=== PATIENT | female | born 1965 | race Caucasian/White ===

== ENCOUNTER 2022-11-12 14:17 | Inpatient (IN) | payer SELFPAY ==
[2022-11-12] MEDS ORDERED: Magnesium 2 GM/50 ML BAG (IN WATER) ONE (14:57)
[2022-11-12] MEDS ORDERED: Dexamethasone 10 MG/ML VIAL ONE (14:57)
[2022-11-12] MEDS ORDERED: Ipratropium/Albuterol 3 ML NEB ONE (15:02)
[2022-11-12 15:20] LABS: #Basophils 0.1 10x3/uL (0.0-0.2); #Eosinphils 0.2 10x3/uL (0.0-0.5); #Monocytes 0.8 10x3/uL (0.0-1.1); #Neutrophils 8.9 10x3/uL (1.5-8.4); %Basophils 0.8 % (0.0-2.0); %Eosinophils 1.6 % (0.0-6.0); %Lymphocytes 24.2 % (18.0-47.0); %Monocytes 5.9 % (0.0-10.0); %Neutrophils 66.7 % (40.0-75.0); Hemoglobin 12.8 g/dL (12.0-15.5); Mean Corpuscular HGB CONC 32.7 g/dL (32.0-36.0); Mean Corpuscular Hemoglobin 29.8 pg (27.0-33.0); Mean Corpuscular Volume 91.2 fl (81.6-98.3); Mean Platelet Volume 10.6 fl (7.4-10.4); Platelet Count 438 10x3/uL (150-450); RBC Distribution Width 12.5 % (11.5-14.5); White Blood Cell (WBC) Count 13.3 10x3/uL (3.5-10.5)
[2022-11-12 15:33] LABS: ALT (SGPT) 14 U/L (8-55); AST (SGOT) 13 U/L (5-34); Alkaline Phosphatase 102 U/L (40-110); Anion Gap 15 mmol/L (10-20); BUN (Urea Nitrogen) 20 mg/dL (9.8-20.1); Bilirubin, Total 0.5 mg/dL (0.2-1.2); CK (CPK) 100 U/L (29-168); Calc. Creatinine Clearance 0 mL/min (70-130); Calcium 9.1 mg/dL (7.8-10.44); Carbon Dioxide 22 mmol/L (22-29); Chloride 104 mmol/L (98-107); Estimated GFR 62; Globulin 2.6 g/dL (2.4-3.5); Glucose 156 mg/dL (70-105); Lipase 61 U/L (8-78); Potassium 4.1 mmol/L (3.5-5.1); Protein, Total 6.6 g/dL (6.0-8.3); Sodium 137 mmol/L (136-145)
[2022-11-12] MEDS ORDERED: diphenhydrAMINE 50 MG/ML VIAL ONE (16:13)
[2022-11-12 16:14] LABS: CKMB 0.9 ng/mL (0-6.6)
[2022-11-12] MEDS ORDERED: Aspirin Chewable 81 MG TAB ONE (16:31)
[2022-11-12 17:51] LABS: Bilirubin Neg (Negative); Blood, Urine 25 (Negative); Clarity Clear (Clear); Glucose, Urine (Dipstick) Normal (Negative); Ketone, Urine Negative (Negative); Leukocyte Negative (Negative); Nitrite Negative (Negative); Protein, Urine (Dipstick) Negative (Neg-Trace); Specific Gravity, Urine 1.005 (1.005-1.030); Urobilinogen Normal mg/dL (Less than 2)
[2022-11-12 17:56] LABS: Bacteria/HPF Rare-Few HPF (None Seen); CAUTI Indications for Culture Fever or rigors; RBC/HPF 0-3 HPF (0-3); Squamous Epithelial 0-3 HPF (0-3); WBC/HPF None Seen HPF (0-3)
[2022-11-12 17:57] LABS: Urine Culture Reflex No No
[2022-11-12] MEDS ORDERED: Acetaminophen 650 MG Suppository PR PRN (18:02)
[2022-11-12] MEDS ORDERED: Ondansetron ODT 4 MG TAB PO PRN (18:02)
[2022-11-12] MEDS ORDERED: Ondansetron PF 4 MG/2 ML Vial IVP PRN (18:02)
[2022-11-12 18:39] VITALS: BMI 33.7
[2022-11-12] MEDS ORDERED: Dextrose 5% in Water 1,000 ML IV PRN (18:53)
[2022-11-12] MEDS ORDERED: Glucagon 1 MG/ML KIT IM PRN (18:53)
[2022-11-12] MEDS ORDERED: Dextrose 50% Abboject 50 ML SYRINGE SLOW IVP PRN (18:53)
[2022-11-12] MEDS ORDERED: Ventolin HFA Inhaler 60 PUFF INHALER INH PRN (18:59)
[2022-11-12] MEDS: Atorvastatin Calcium 20 MG TAB PO SCH (20:08)
[2022-11-12] MEDS: Apixaban 5 MG TAB PO SCH (20:08)
[2022-11-12] MEDS: cefTRIAXone\\ROCEPHIN 1 GM in Sodium Chloride 0.9% 100 ML IVPB SCH (20:08)
[2022-11-12] MEDS: Gabapentin 300 MG CAP PO SCH (20:28)
[2022-11-12] MEDS ORDERED: Insulin Regular 300 UNITS/3 ML VIAL ONE (20:28)
[2022-11-12] MEDS: traMADol HCl 50 MG TAB PO PRN (20:29)
[2022-11-12] MEDS ORDERED: Carvedilol 3.125 MG TAB PO SCH (20:30)
[2022-11-12] MEDS: Insulin Regular 300 UNITS/3 ML VIAL SC PRN (20:30)
[2022-11-12] MEDS: Azithromycin 500 MG in Sodium Chloride 0.9% 250 ML 250 ML IVPB SCH (21:23)
[2022-11-12] MEDS: Ipratropium/Albuterol 3 ML NEB NEB SCH (21:26)
[2022-11-12 21:52] LABS: Digoxin 0.47 ng/mL (0.8-2.0)
[2022-11-12] MEDS ORDERED: Benzonatate 100 MG CAP PO SCH (23:45)
[2022-11-12] MEDS: hydrOXYzine 25 MG TAB PO PRN (23:47)
[2022-11-12] MEDS: methylPREDNISolone Sod Succ 40 MG VIAL IVP SCH (23:48)
[2022-11-13 00:03] LABS: Strep pneumo Urine Ag NEGATIVE (NEGATIVE)
[2022-11-13 00:04] LABS: Legionella Urinary Ag Negative (Negative)
[2022-11-13] MEDS: Ipratropium/Albuterol 3 ML NEB NEB SCH ×4 (01:54→20:19)
[2022-11-13] MEDS: Benzonatate 100 MG CAP PO SCH ×3 (03:31→22:32)
[2022-11-13 05:36] LABS: #Monocytes 0.2 10x3/uL (0.0-1.1); #Neutrophils 9.1 10x3/uL (1.5-8.4); %Basophils 0.2 % (0.0-2.0); %Lymphocytes 10.1 % (18.0-47.0); %Monocytes 1.7 % (0.0-10.0); %Neutrophils 86.3 % (40.0-75.0); Hemoglobin 10.8 g/dL (12.0-15.5); Mean Corpuscular Volume 90.8 fl (81.6-98.3); Mean Platelet Volume 10.5 fl (7.4-10.4); Platelet Count 358 10x3/uL (150-450); RBC Distribution Width 12.3 % (11.5-14.5); White Blood Cell (WBC) Count 10.6 10x3/uL (3.5-10.5)
[2022-11-13] MEDS: traMADol HCl 50 MG TAB PO PRN ×2 (05:44→18:12)
[2022-11-13] MEDS: Insulin Regular 300 UNITS/3 ML VIAL SC PRN ×4 (05:47→22:05)
[2022-11-13 05:52] LABS: Anion Gap 15 mmol/L (10-20); BUN (Urea Nitrogen) 20 mg/dL (9.8-20.1); Calc. Creatinine Clearance 89 mL/min (70-130); Calcium 8.5 mg/dL (7.8-10.44); Carbon Dioxide 19 mmol/L (22-29); Chloride 104 mmol/L (98-107); Estimated GFR 63; Glucose 305 mg/dL (70-105); Potassium 3.8 mmol/L (3.5-5.1); Sodium 134 mmol/L (136-145)
[2022-11-13] MEDS: methylPREDNISolone Sod Succ 40 MG VIAL IVP SCH ×3 (06:10→16:57)
[2022-11-13] MEDS ORDERED: INSULN ASP SQ SCH (07:30)
[2022-11-13] MEDS ORDERED: INSULIN ASPART PROT SQ SCH (07:30)
[2022-11-13] MEDS ORDERED: [UNRECOGNIZED DRUG - OTHER] SQ SCH (07:30)
[2022-11-13] MEDS ORDERED: Carvedilol 3.125 MG TAB PO SCH (08:00)
[2022-11-13] MEDS: HumuLIN 70/30 (300 UNITS/3 ML VIAL) SC SCH ×2 (08:47→16:58)
[2022-11-13] MEDS: Gabapentin 300 MG CAP PO SCH ×2 (08:48→22:33)
[2022-11-13] MEDS: Apixaban 5 MG TAB PO SCH ×2 (08:48→22:32)
[2022-11-13] MEDS: Digoxin 0.125 MG TAB PO SCH (08:48)
[2022-11-13] MEDS: Carvedilol 3.125 MG TAB PO SCH ×2 (08:48→16:58)
[2022-11-13] MEDS ORDERED: DULoxetine 20 MG CAP PO SCH (12:00)
[2022-11-13] MEDS ORDERED: Flecainide 50 MG TAB PO SCH (12:00)
[2022-11-13] MEDS ORDERED: Naproxen 500 MG TAB PO SCH (12:15)
[2022-11-13] MEDS: hydrOXYzine 25 MG TAB PO PRN (12:17)
[2022-11-13] MEDS ORDERED: EXENATIDE 5 MCG/0.02 ML SQ SCH (15:00)
[2022-11-13] MEDS: Azithromycin 500 MG in Sodium Chloride 0.9% 250 ML 250 ML IVPB SCH (22:05)
[2022-11-13] MEDS: Acetaminophen 325 MG TAB PO PRN (22:31)
[2022-11-13] MEDS: cefTRIAXone\\ROCEPHIN 1 GM in Sodium Chloride 0.9% 100 ML IVPB SCH (22:31)
[2022-11-13] MEDS: Atorvastatin Calcium 20 MG TAB PO SCH (22:32)
[2022-11-13] MEDS: Flecainide 50 MG TAB PO SCH (22:32)
[2022-11-14] MEDS: methylPREDNISolone Sod Succ 40 MG VIAL IVP SCH ×3 (00:50→21:14)
[2022-11-14] MEDS: Ipratropium/Albuterol 3 ML NEB NEB SCH ×4 (01:43→20:19)
[2022-11-14] MEDS: traMADol HCl 50 MG TAB PO PRN ×3 (05:13→23:40)
[2022-11-14 05:40] LABS: Hemoglobin 9.9 g/dL (12.0-15.5); Mean Corpuscular HGB CONC 32.8 g/dL (32.0-36.0); Mean Corpuscular Hemoglobin 30.7 pg (27.0-33.0); Mean Corpuscular Volume 93.5 fl (81.6-98.3); Mean Platelet Volume 10.7 fl (7.4-10.4); Platelet Count 376 10x3/uL (150-450); RBC Distribution Width 12.9 % (11.5-14.5); Red Blood Cell (RBC) Count 3.23 10x6/uL (3.90-5.03); White Blood Cell (WBC) Count 23.6 10x3/uL (3.5-10.5)
[2022-11-14 05:43] LABS: MDiff Complete? YES
[2022-11-14 05:51] LABS: Anion Gap 14 mmol/L (10-20); BUN (Urea Nitrogen) 26 mg/dL (9.8-20.1); Calc. Creatinine Clearance 95 mL/min (70-130); Calcium 8.7 mg/dL (7.8-10.44); Carbon Dioxide 21 mmol/L (22-29); Chloride 107 mmol/L (98-107); Estimated GFR 68; Glucose 286 mg/dL (70-105); Potassium 4.7 mmol/L (3.5-5.1); Sodium 137 mmol/L (136-145)
[2022-11-14 06:01] LABS: Band 1 % (5-11); Lymphocytes 14 % (21-51); Monocytes 9 % (0-10); Neutrophil 75 % (42-75); Reactive Lymphocytes 1 % (0-10)
[2022-11-14 06:02] LABS: Platelet Adequacy Comment Appears Adequate
[2022-11-14] MEDS: Insulin Regular 300 UNITS/3 ML VIAL SC PRN (06:38)
[2022-11-14] MEDS: Carvedilol 3.125 MG TAB PO SCH ×2 (09:16→17:24)
[2022-11-14] MEDS: DULoxetine 20 MG CAP PO SCH (09:16)
[2022-11-14] MEDS: Benzonatate 100 MG CAP PO SCH ×3 (09:16→21:13)
[2022-11-14] MEDS: Gabapentin 300 MG CAP PO SCH ×2 (09:17→21:12)
[2022-11-14] MEDS: Apixaban 5 MG TAB PO SCH ×2 (09:18→21:12)
[2022-11-14] MEDS: Digoxin 0.125 MG TAB PO SCH (09:21)
[2022-11-14] MEDS: Flecainide 50 MG TAB PO SCH ×2 (09:22→21:12)
[2022-11-14] MEDS: hydrOXYzine 25 MG TAB PO PRN (09:26)
[2022-11-14] MEDS: HumuLIN 70/30 (300 UNITS/3 ML VIAL) SC SCH ×2 (09:27→17:24)
[2022-11-14] MEDS: cefTRIAXone\\ROCEPHIN 1 GM in Sodium Chloride 0.9% 100 ML IVPB SCH (21:12)
[2022-11-14] MEDS: Atorvastatin Calcium 20 MG TAB PO SCH (21:12)
[2022-11-14] MEDS: Azithromycin 500 MG in Sodium Chloride 0.9% 250 ML 250 ML IVPB SCH (21:13)
[2022-11-15] MEDS: Ipratropium/Albuterol 3 ML NEB NEB SCH ×4 (02:36→19:11)
[2022-11-15 05:12] LABS: Anion Gap 11 mmol/L (10-20); BUN (Urea Nitrogen) 26 mg/dL (9.8-20.1); Calc. Creatinine Clearance 94 mL/min (70-130); Calcium 8.5 mg/dL (7.8-10.44); Carbon Dioxide 25 mmol/L (22-29); Chloride 108 mmol/L (98-107); Estimated GFR 67; Glucose 154 mg/dL (70-105); Potassium 4.9 mmol/L (3.5-5.1); Sodium 139 mmol/L (136-145)
[2022-11-15 05:29] LABS: #Basophils 0.1 10x3/uL (0.0-0.2); #Monocytes 0.3 10x3/uL (0.0-1.1); #Neutrophils 12.4 10x3/uL (1.5-8.4); %Basophils 0.3 % (0.0-2.0); %Lymphocytes 11.3 % (18.0-47.0); %Neutrophils 84.4 % (40.0-75.0); Hemoglobin 10.4 g/dL (12.0-15.5); Mean Corpuscular HGB CONC 32.5 g/dL (32.0-36.0); Mean Corpuscular Hemoglobin 29.8 pg (27.0-33.0); Mean Corpuscular Volume 91.7 fl (81.6-98.3); Mean Platelet Volume 10.8 fl (7.4-10.4); Platelet Count 386 10x3/uL (150-450); RBC Distribution Width 13.2 % (11.5-14.5); Red Blood Cell (RBC) Count 3.49 10x6/uL (3.90-5.03); White Blood Cell (WBC) Count 14.7 10x3/uL (3.5-10.5)
[2022-11-15] MEDS ORDERED: Ondansetron ODT 4 MG TAB PO PRN (05:55)
[2022-11-15] MEDS ORDERED: Ondansetron ODT 4 MG TAB PO SCH (06:00)
[2022-11-15] MEDS: traMADol HCl 50 MG TAB PO PRN (06:07)
[2022-11-15] MEDS: Acetaminophen 325 MG TAB PO PRN (06:08)
[2022-11-15] MEDS: methylPREDNISolone Sod Succ 40 MG VIAL IVP SCH ×2 (08:55→21:02)
[2022-11-15] MEDS: HumuLIN 70/30 (300 UNITS/3 ML VIAL) SC SCH ×2 (08:58→16:00)
[2022-11-15] MEDS: DULoxetine 20 MG CAP PO SCH (09:00)
[2022-11-15] MEDS: Apixaban 5 MG TAB PO SCH ×2 (09:01→21:02)
[2022-11-15] MEDS: Gabapentin 300 MG CAP PO SCH ×2 (09:01→21:01)
[2022-11-15] MEDS: Carvedilol 3.125 MG TAB PO SCH ×2 (09:01→16:52)
[2022-11-15] MEDS: Digoxin 0.125 MG TAB PO SCH (09:01)
[2022-11-15] MEDS: Flecainide 50 MG TAB PO SCH ×2 (09:02→21:01)
[2022-11-15] MEDS: Benzonatate 100 MG CAP PO SCH ×3 (09:02→21:01)
[2022-11-15] MEDS: hydrOXYzine 25 MG TAB PO PRN (09:09)
[2022-11-15] MEDS ORDERED: Fioricet 325/50/40 mg Tablet PO SCH (10:00)
[2022-11-15] MEDS: Insulin Regular 300 UNITS/3 ML VIAL SC PRN ×2 (12:20→21:16)
[2022-11-15] MEDS ORDERED: Senokot S 8.6-50 MG TAB PO SCH (15:45)
[2022-11-15] MEDS: Polyethylene Glycol 3350 17 GM Packet PO PRN (15:52)
[2022-11-15] MEDS: cefTRIAXone\\ROCEPHIN 1 GM in Sodium Chloride 0.9% 100 ML IVPB SCH (21:00)
[2022-11-15] MEDS: Atorvastatin Calcium 20 MG TAB PO SCH (21:01)
[2022-11-15] MEDS: Azithromycin 500 MG in Sodium Chloride 0.9% 250 ML 250 ML IVPB SCH (21:02)
[2022-11-15] MEDS: Senokot S 8.6-50 MG TAB PO SCH (21:06)
[2022-11-15] MEDS: Fioricet 325/50/40 mg Tablet PO PRN (22:04)
[2022-11-16] MEDS: Ipratropium/Albuterol 3 ML NEB NEB SCH ×3 (01:13→14:22)
[2022-11-16] MEDS: Fioricet 325/50/40 mg Tablet PO PRN ×2 (03:30→11:58)
[2022-11-16 04:48] LABS: Anion Gap 11 mmol/L (10-20); BUN (Urea Nitrogen) 25 mg/dL (9.8-20.1); Calc. Creatinine Clearance 93 mL/min (70-130); Calcium 8.8 mg/dL (7.8-10.44); Carbon Dioxide 26 mmol/L (22-29); Chloride 104 mmol/L (98-107); Estimated GFR 66; Glucose 203 mg/dL (70-105); Sodium 136 mmol/L (136-145)
[2022-11-16 05:07] LABS: #Basophils 0.1 10x3/uL (0.0-0.2); #Monocytes 0.6 10x3/uL (0.0-1.1); #Neutrophils 13.4 10x3/uL (1.5-8.4); %Basophils 0.4 % (0.0-2.0); %Lymphocytes 11.6 % (18.0-47.0); %Monocytes 3.9 % (0.0-10.0); %Neutrophils 80.8 % (40.0-75.0); Hemoglobin 10.5 g/dL (12.0-15.5); Mean Corpuscular HGB CONC 32.1 g/dL (32.0-36.0); Mean Corpuscular Hemoglobin 29.4 pg (27.0-33.0); Mean Corpuscular Volume 91.6 fl (81.6-98.3); Mean Platelet Volume 10.8 fl (7.4-10.4); Platelet Count 421 10x3/uL (150-450); RBC Distribution Width 12.7 % (11.5-14.5); Red Blood Cell (RBC) Count 3.57 10x6/uL (3.90-5.03); White Blood Cell (WBC) Count 16.6 10x3/uL (3.5-10.5)
[2022-11-16] MEDS: Insulin Regular 300 UNITS/3 ML VIAL SC PRN (06:16)
[2022-11-16] MEDS: HumuLIN 70/30 (300 UNITS/3 ML VIAL) SC SCH ×2 (08:14→15:39)
[2022-11-16] MEDS: methylPREDNISolone Sod Succ 40 MG VIAL IVP SCH (08:16)
[2022-11-16] MEDS: Polyethylene Glycol 3350 17 GM Packet PO PRN (08:19)
[2022-11-16] MEDS: Senokot S 8.6-50 MG TAB PO SCH (08:20)
[2022-11-16] MEDS: Gabapentin 300 MG CAP PO SCH (08:21)
[2022-11-16] MEDS: Benzonatate 100 MG CAP PO SCH ×2 (08:21→15:42)
[2022-11-16] MEDS: Digoxin 0.125 MG TAB PO SCH (08:21)
[2022-11-16] MEDS: Apixaban 5 MG TAB PO SCH (08:22)
[2022-11-16] MEDS: Flecainide 50 MG TAB PO SCH (08:22)
[2022-11-16] MEDS: Carvedilol 3.125 MG TAB PO SCH ×2 (08:22→16:20)
[2022-11-16] MEDS: traMADol HCl 50 MG TAB PO PRN ×2 (08:23→15:37)
[2022-11-16] MEDS ORDERED: DULoxetine 20 MG CAP PO SCH (09:00)
[2022-11-16 18:30] VITALS: BP 127/60; TEMP 97.8
== END 2022-11-16 18:00 | disposition home or self-care (01) | DRG 189 ==
LOC: CSHERS 14:17 → CSHTELE 17:28
PROVIDERS: ADMIT Family Medicine; ATTEND Family Medicine
DX: J96.21 Acute and chronic respiratory failure with hypoxia (principal); J44.1 Chronic obstructive pulmonary disease with (acute) exacerbation; I10 Essential (primary) hypertension; E78.5 Hyperlipidemia, unspecified; I48.91 Unspecified atrial fibrillation; F17.210 Nicotine dependence, cigarettes, uncomplicated; E11.9 Type 2 diabetes mellitus without complications; F41.9 Anxiety disorder, unspecified; F32.A Depression, unspecified; F43.10 Post-traumatic stress disorder, unspecified; R51.9 Headache, unspecified; Z79.01 Long term (current) use of anticoagulants; Z99.81 Dependence on supplemental oxygen; Z91.013 Allergy to seafood; Z79.51 Long term (current) use of inhaled steroids; Z79.899 Other long term (current) drug therapy; Z79.4 Long term (current) use of insulin; Z98.890 Other specified postprocedural states; Z90.710 Acquired absence of both cervix and uterus; Z86.73 Personal history of transient ischemic attack (TIA), and cerebral infarction without residual deficits
CPT/HCPCS: 36415; 36416; 71045; 80048; 80053; 80162; 81001; 82550; 82553; 83605; 83690; 83880; 84484; 85025; 87040; 87449; 87633; 87899; 93005; 94640; 94664; 94760; 94762; 96365; 96375; J0456; J0696; J1100; J1200; J1815; J1956; J2920; J3475; J3490; J7050; J7611; J7620; Q0162

== ENCOUNTER 2023-02-13 13:11 | Inpatient (IN) | payer MEDICAID, OTHER, SELFPAY ==
[2023-02-13 14:11] LABS: #Basophils 0.1 10x3/uL (0.0-0.2); #Eosinphils 0.1 10x3/uL (0.0-0.5); #Monocytes 1.7 10x3/uL (0.0-1.1); #Neutrophils 18.8 10x3/uL (1.5-8.4); %Basophils 0.5 % (0.0-2.0); %Eosinophils 0.2 % (0.0-6.0); %Lymphocytes 12.8 % (18.0-47.0); %Monocytes 7.1 % (0.0-10.0); %Neutrophils 78.2 % (40.0-75.0); Hematocrit 38.6 % (34.9-44.5); Hemoglobin 12.7 g/dL (12.0-15.5); Mean Corpuscular HGB CONC 32.9 g/dL (32.0-36.0); Mean Corpuscular Hemoglobin 28.4 pg (27.0-33.0); Mean Corpuscular Volume 86.4 fl (81.6-98.3); Mean Platelet Volume 9.9 fl (7.4-10.4); Platelet Count 434 10x3/uL (150-450); RBC Distribution Width 13.2 % (11.5-14.5); Red Blood Cell (RBC) Count 4.47 10x6/uL (3.90-5.03)
[2023-02-13 14:24] LABS: ALT (SGPT) 13 U/L (8-55); AST (SGOT) 12 U/L (5-34); Albumin 4.1 g/dL (3.5-5.0); Alkaline Phosphatase 95 U/L (40-110); Anion Gap 16 mmol/L (10-20); BUN (Urea Nitrogen) 14 mg/dL (9.8-20.1); Bilirubin, Total 0.6 mg/dL (0.2-1.2); Calc. Creatinine Clearance 0 mL/min (70-130); Calcium 9.6 mg/dL (7.8-10.44); Carbon Dioxide 24 mmol/L (22-29); Chloride 99 mmol/L (98-107); Estimated GFR 63; Globulin 3.7 g/dL (2.4-3.5); Glucose 148 mg/dL (70-105); Potassium 3.8 mmol/L (3.5-5.1); Protein, Total 7.8 g/dL (6.0-8.3); Sodium 135 mmol/L (136-145)
[2023-02-13] MEDS ORDERED: cefTRIAXone (ROCEPHIN) 1 GM VIAL ONE (14:31)
[2023-02-13] MEDS ORDERED: Dexamethasone 10 MG/ML VIAL ONE (14:31)
[2023-02-13] MEDS ORDERED: HYDROcodone/Acetaminophen 5/325 mg Tablet ONE ×2 (16:40→21:44)
[2023-02-13] MEDS ORDERED: Ketorolac Tromethamine 30 MG/ML VIAL ONE (16:42)
[2023-02-13] MEDS ORDERED: Ampicillin/Sulbactam 3 GM in Sodium Chloride 0.9% 100 ML IVPB SCH (17:00)
[2023-02-13 17:10] VITALS: BMI 32.7
[2023-02-13] MEDS ORDERED: Acetaminophen 325 MG TAB PO PRN (20:57)
[2023-02-13] MEDS ORDERED: Atorvastatin Calcium 20 MG TAB PO SCH (21:00)
[2023-02-13] MEDS ORDERED: Insulin Regular 300 UNITS/3 ML VIAL SC PRN ×2 (21:22)
[2023-02-13] MEDS ORDERED: Dextrose 5% in Water 1,000 ML IV PRN (21:22)
[2023-02-13] MEDS ORDERED: Dextrose 50% Abboject 50 ML SYRINGE SLOW IVP PRN (21:22)
[2023-02-13] MEDS ORDERED: Glucagon 1 MG/ML KIT IM PRN (21:22)
[2023-02-13] MEDS ORDERED: Apixaban 5 MG TAB ONE (21:44)
[2023-02-13] MEDS: HYDROcodone/Acetaminophen 5/325 mg Tablet PO PRN (21:45)
[2023-02-13] MEDS: Apixaban 5 MG TAB PO SCH (21:46)
[2023-02-13] MEDS: Benzocaine/Menthol 1 LOZ LOZ PO PRN (21:54)
[2023-02-13] MEDS ORDERED: FLU VACC QS2023-24(6MOS UP)/PF 60 MCG/0.5 ML SYRINGE IM ONE (23:30)
[2023-02-13] MEDS: Ampicillin/Sulbactam 3 GM in Sodium Chloride 0.9% 100 ML IVPB SCH (23:47)
[2023-02-14] MEDS ORDERED: HYDROcodone/Acetaminophen 5/325 mg Tablet ONE ×2 (03:25→12:03)
[2023-02-14] MEDS: HYDROcodone/Acetaminophen 5/325 mg Tablet PO PRN ×2 (03:34→12:06)
[2023-02-14] MEDS: Benzocaine/Menthol 1 LOZ LOZ PO PRN ×3 (03:36→14:19)
[2023-02-14 03:50] LABS: Hematocrit 34.8 % (34.9-44.5); Hemoglobin 11.5 g/dL (12.0-15.5); Mean Corpuscular Hemoglobin 28.7 pg (27.0-33.0); Mean Corpuscular Volume 86.8 fl (81.6-98.3); Platelet Count 410 10x3/uL (150-450); RBC Distribution Width 13.1 % (11.5-14.5); Red Blood Cell (RBC) Count 4.01 10x6/uL (3.90-5.03); White Blood Cell (WBC) Count 20.3 10x3/uL (3.5-10.5)
[2023-02-14 03:51] LABS: #Monocytes 0.5 10x3/uL (0.0-1.1); %Basophils 0.2 % (0.0-2.0); %Monocytes 2.3 % (0.0-10.0); %Neutrophils 87.8 % (40.0-75.0)
[2023-02-14 03:57] LABS: Anion Gap 15 mmol/L (10-20); BUN (Urea Nitrogen) 18 mg/dL (9.8-20.1); Calc. Creatinine Clearance 93 mL/min (70-130); Calcium 9.3 mg/dL (7.8-10.44); Carbon Dioxide 24 mmol/L (22-29); Chloride 101 mmol/L (98-107); Estimated GFR 69; Glucose 165 mg/dL (70-105); Potassium 4.1 mmol/L (3.5-5.1); Sodium 136 mmol/L (136-145)
[2023-02-14] MEDS: Ampicillin/Sulbactam 3 GM in Sodium Chloride 0.9% 100 ML IVPB SCH ×2 (05:08→11:58)
[2023-02-14 06:03] VITALS: BP 108/60; TEMP 98
[2023-02-14] MEDS ORDERED: Dexamethasone 10 MG/ML VIAL ONE (08:38)
[2023-02-14] MEDS ORDERED: Apixaban 5 MG TAB ONE (08:39)
[2023-02-14] MEDS: Apixaban 5 MG TAB PO SCH (08:48)
[2023-02-14] MEDS ORDERED: Dexamethasone 20 MG/5 ML VIAL SLOW IVP SCH (09:00)
[2023-02-14] MEDS ORDERED: Dexamethasone 10 MG in Sodium Chloride 0.9% 50 ML IVPB SCH (09:00)
[2023-02-14] MEDS ORDERED: Insulin Regular 300 UNITS/3 ML VIAL ONE (13:03)
== END 2023-02-14 14:27 | disposition home or self-care (01) | DRG 872 ==
LOC: CSHERS 13:11 → CSHERHOLD 15:50
PROVIDERS: ADMIT Hospitalist; ATTEND Internal Medicine
DX: A41.9 Sepsis, unspecified organism (principal); J36 Peritonsillar abscess; E87.1 Hypo-osmolality and hyponatremia; J44.9 Chronic obstructive pulmonary disease, unspecified; F19.10 Other psychoactive substance abuse, uncomplicated; E11.9 Type 2 diabetes mellitus without complications; J02.9 Acute pharyngitis, unspecified; I10 Essential (primary) hypertension; E78.5 Hyperlipidemia, unspecified; I48.91 Unspecified atrial fibrillation; F12.90 Cannabis use, unspecified, uncomplicated; Z91.013 Allergy to seafood; Z88.8 Allergy status to other drugs, medicaments and biological substances; Z79.899 Other long term (current) drug therapy; Z90.710 Acquired absence of both cervix and uterus; Z98.890 Other specified postprocedural states; Z71.6 Tobacco abuse counseling
CPT/HCPCS: 36415; 36416; 70491; 71045; 80048; 80053; 83605; 85025; 87040; 87430; 94760; 94762; J0295; J0696; J1100; J1815; J1885; J3490

== ENCOUNTER 2023-07-01 14:09 | Emergency (ER) | payer OTHER, MEDICAID ==
[2023-07-01 14:54] LABS: #Basophils 0.1 10x3/uL (0.0-0.2); #Eosinphils 0.1 10x3/uL (0.0-0.5); #Monocytes 0.8 10x3/uL (0.0-1.1); #Neutrophils 8.7 10x3/uL (1.5-8.4); %Basophils 0.7 % (0.0-2.0); %Eosinophils 0.5 % (0.0-6.0); %Lymphocytes 21.6 % (18.0-47.0); %Monocytes 6.1 % (0.0-10.0); %Neutrophils 70.3 % (40.0-75.0); Hematocrit 44.1 % (34.9-44.5); Hemoglobin 14.9 g/dL (12.0-15.5); Mean Corpuscular HGB CONC 33.8 g/dL (32.0-36.0); Mean Corpuscular Hemoglobin 29.4 pg (27.0-33.0); Mean Platelet Volume 10.5 fl (7.4-10.4); Platelet Count 482 10x3/uL (150-450); RBC Distribution Width 13.9 % (11.5-14.5); Red Blood Cell (RBC) Count 5.07 10x6/uL (3.90-5.03); White Blood Cell (WBC) Count 12.4 10x3/uL (3.5-10.5)
[2023-07-01 15:00] LABS: ALT (SGPT) 16 U/L (8-55); AST (SGOT) 17 U/L (5-34); Albumin 4.5 g/dL (3.5-5.0); Alkaline Phosphatase 94 U/L (40-110); Anion Gap 18 mmol/L (10-20); BUN (Urea Nitrogen) 16 mg/dL (9.8-20.1); Bilirubin, Total 0.4 mg/dL (0.2-1.2); Calc. Creatinine Clearance 0 mL/min (70-130); Carbon Dioxide 22 mmol/L (22-29); Chloride 102 mmol/L (98-107); Estimated GFR 44; Globulin 2.8 g/dL (2.4-3.5); Glucose 137 mg/dL (70-105); Potassium 4.4 mmol/L (3.5-5.1); Protein, Total 7.3 g/dL (6.0-8.3); Sodium 138 mmol/L (136-145)
[2023-07-01 15:09] LABS: Troponin I 0.018 ng/mL (< 0.028)
== END 2023-07-01 15:26 | disposition home or self-care (01) ==
LOC: CSHERS 14:09
DX: J44.9 Chronic obstructive pulmonary disease, unspecified (principal); I48.91 Unspecified atrial fibrillation; I12.9 Hypertensive chronic kidney disease with stage 1 through stage 4 chronic kidney disease, or unspecified chronic kidney disease; E11.22 Type 2 diabetes mellitus with diabetic chronic kidney disease; N18.30 Chronic kidney disease, stage 3 unspecified; Z79.01 Long term (current) use of anticoagulants; Z79.4 Long term (current) use of insulin; Z87.891 Personal history of nicotine dependence
CPT/HCPCS: 36415; 71045; 80053; 83880; 84484; 85025; 93005

== ENCOUNTER 2025-01-23 14:18 | Emergency (ER) | payer MEDICAID ==
[2025-01-23 15:42] LABS: #Basophils 0.05 10x3/uL (0.0-0.2); #Eosinophils Less than 0.03 10x3/uL (0.0-0.5); #Monocytes 0.78 10x3/uL (0.0-1.1); #Neutrophils 7.37 10x3/uL (1.5-8.4); %Basophils 0.5 % (0.0-2.0); %Eosinophils 0.2 % (0.0-6.0); %Lymphocytes 21.0 % (18.0-47.0); %Monocytes 7.4 % (0.0-10.0); %Neutrophils 69.9 % (40.0-75.0); Hematocrit 37.9 % (34.9-44.5); Hemoglobin 13.0 g/dL (12.0-15.5); Mean Corpuscular Hemoglobin 32.2 pg (27.0-33.0); Mean Corpuscular Volume 93.8 fL (81.6-98.3); Platelet Count 417 10x3/uL (150-450); Red Blood Cell (RBC) Count 4.04 10x6/uL (3.90-5.03); White Blood Cell (WBC) Count 10.55 10x3/uL (3.5-10.5)
[2025-01-23 16:34] LABS: ALT (SGPT) 14 U/L (Less than 34); AST (SGOT) 22 U/L (11-34); Albumin 3.6 g/dL (3.1-4.5); Alkaline Phosphatase 74 U/L (40-110); Anion Gap 16 mmol/L (10-20); BUN (Urea Nitrogen) 22 mg/dL (9.8-20.1); Bilirubin, Total 0.7 mg/dL (0.3-1.2); Calc. Creatinine Clearance 0 mL/min (70-130); Calcium 9.0 mg/dL (7.8-10.44); Carbon Dioxide 23 mmol/L (22-29); Chloride 104 mmol/L (98-107); Globulin 3.1 g/dL (2.4-3.5); Glucose 91 mg/dL (70-105); Lipase 23 U/L (8-78); Magnesium 1.7 mg/dL (1.6-2.6); Potassium 4.4 mmol/L (3.5-5.1); Sodium 139 mmol/L (136-145)
[2025-01-23 16:39] LABS: Troponin I 0.035 ng/mL (< 0.028)
[2025-01-23 18:17] LABS: Acetaminophen Less than 10 mcg/mL (Less than 10); Salicylate Less than 8.0 mg/dL (Less than 8.0)
[2025-01-23 18:45] LABS: Glucose, Urine (Dipstick) Normal (Negative); Leukocyte 25 (Negative); Protein, Urine (Dipstick) 30 mg/dl (Neg-Trace); Specific Gravity, Urine 1.020 (1.005-1.030)
[2025-01-23 18:58] LABS: Cocaine Metabolite Screen Negative (Negative); THC/Cannabinoid Screen PRELIM POSITIVE (Negative); Tricyclic Screen Negative (Negative)
[2025-01-23 19:00] LABS: Bacteria/HPF Rare-Few HPF (None Seen); CAUTI Indications for Culture Alt mental st,lethar; Mucous/LPF Rare LPF (<2+); RBC/HPF 0-3 HPF (0-3); WBC/HPF 0-3 HPF (0-3)
[2025-01-23 19:03] LABS: Urine Culture Reflex No No
== END 2025-01-23 20:10 | disposition short-term general hospital (02) ==
LOC: CSHERS 14:18
DX: R79.89 Other specified abnormal findings of blood chemistry (principal); R41.2 Retrograde amnesia; F41.9 Anxiety disorder, unspecified; I48.91 Unspecified atrial fibrillation; J44.9 Chronic obstructive pulmonary disease, unspecified; I12.9 Hypertensive chronic kidney disease with stage 1 through stage 4 chronic kidney disease, or unspecified chronic kidney disease; E11.22 Type 2 diabetes mellitus with diabetic chronic kidney disease; N18.30 Chronic kidney disease, stage 3 unspecified; Z86.73 Personal history of transient ischemic attack (TIA), and cerebral infarction without residual deficits; Z79.4 Long term (current) use of insulin
CPT/HCPCS: 36415; 71045; 80053; 80306; 80307; 81001; 83605; 83690; 83735; 83880; 84484; 85025; 87428; 93005; J2060